=== PATIENT | male | born 1995 | race Caucasian/White ===

== ENCOUNTER 2016-07-31 20:14 | Emergency (ER) | payer BC, OTHER ==
--- NOTE | 2016-07-31 20:25 | Emergency Department Record ---
History of Present Illness - General Stated Complaint: LACERATION ON RT HAND Time Seen by Provider: 07/31/16 20:22 Source: Patient Mode of Arrival: Ambulatory Limitations: No limitations - History of Present Illness Initial Comments: 20 yo male presents to ED to ED with a CC of laceration to the base of the right thumb while loading sheet metal tonight. Patient denies weakness to the thumb, reports mild tingling. Patient denies health problems at his baseline, does not take blood thinner medications. Onset/Timin -: Minutes(s) Other Extremity Injury: Hand: Right Other Injuries: None Handedness: Right Place: Work Improves With: None Worsens With: None Context: Laceration Associated Symptoms: Denies other symptoms Treatments Prior to Arrival: Bandage - Related Data Previous Rx's Medication Instructions Recorded Cephalexin [Keflex] 500 mg PO QID #39 cap 07/31/16 Allergies Allergy/AdvReac Type Severity Reaction Status Date / Time No Known Drug Allergies Allergy Verified 07/31/16 20:26 Review of Systems Constitutional: Denies: Chills, Fever, Malaise, Night sweats Eyes: Denies: Eye discharge, Eye pain ENT: Denies: Congestion, Ear pain Respiratory: Denies: Cough, Dyspnea Cardiovascular: Denies: Chest pain, Dyspnea on exertion Endocrine: Denies: Fatigue, Heat or cold intolerance Gastrointestinal: Denies: Abdominal pain, Nausea, Vomiting Genitourinary: Denies: Incontinence, Retention Musculoskeletal: Reports: Arthralgia. Denies: Back pain, Gout, Joint swelling Skin: Denies: Bruising, Change in color Neurological: Denies: Abnormal gait, Confusion, Seizure Psychiatric: Denies: Anxiety Hematological/Lymphatic: Denies: Anemia, Blood Clots Physical Exam - General General Appearance: Alert, Oriented x3, Cooperative, No acute distress Limitations: No limitations - Head Head exam: Atraumatic, Normocephalic, Normal inspection Head exam detail: negative: Abrasion, Contusion, Phillips's sign, General tenderness, Hematoma, Laceration - Eye Eye exam: Normal appearance. negative: Conjunctival injection, Periorbital swelling, Periorbital tenderness, Scleral icterus - ENT Ear exam: negative: Auricular hematoma, Auricular trauma Nasal Exam: negative: Active bleeding, Discharge, Dried blood, Foreign body Mouth exam: negative: Drooling, Laceration, Muffled voice, Tongue elevation - Neck Neck exam: Normal inspection. negative: Meningismus, Tenderness - Respiratory Respiratory exam: Normal lung sounds bilaterally. negative: Rales, Respiratory distress, Rhonchi, Stridor - Cardiovascular Cardiovascular Exam: Regular rate, Normal rhythm, Normal heart sounds - GI/Abdominal GI/Abdominal exam: Soft. negative: Rigid, Tenderness - Rectal Rectal exam: Deferred - exam: Deferred - Extremities Extremities exam: Tenderness, Other (2.0 flap-like laceration to the base of the right thumb, FROM of the thumb on examination, full opposition to all digits is intact.). negative: Calf tenderness, Pedal edema - Back Back exam: Denies: CVA tenderness (R), CVA tenderness (L) - Neurological Neurological exam: Alert, Normal gait, Oriented X3 - Psychiatric Psychiatric exam: Normal affect, Normal mood - Skin Skin exam: Normal color. negative: Abrasion Type of lesion: negative: abrasion Course - Reevaluation(s) Reevaluation #1: 07/31/16 20:42 Procedure Note: Right hand was anesthetized with lidocaine 1%, 3 mL and prepped in sterile fashion. Would was then irrigated and visualized for any FBs, none identified. No tendons were visualized on examination. Wound was closed with 4 -0 Prolene sutures in interrupted fashion, #7. Patient tolerated the procedure well without complications. Tetanus was updated while in the ED, will initiate antibiotics as the wound does involve the hand. Patient has FROM of the thumb following the procedure with full opposition intact, sensation to the dorsum of the thumb/hand is normal as well. Patient appears stable for discharge at this time. 07/31/16 20:45 07/31/16 20:47 Disposition Disposition: Discharge Clinical Impression: Hand laceration Qualifiers: Encounter type: initial encounter Foreign body presence: without foreign body Laterality: right Qualified Code(s): S61.411A - Laceration without foreign body of right hand, initial encounter Disposition: Home, Self-Care Condition: (2) Stable Instructions: Laceration (ED) Additional Instructions: Return to ED if your symptoms worsen or if you have any concerns. Keflex as directed. Sutures out in 10-14 days. Follow-up with your family doctor in 1 week. Prescriptions: Cephalexin [Keflex] 500 mg PO QID #39 cap Time of Disposition: 20:47
[2016-07-31] MEDS ORDERED: Diph,Pert(Acell),Tet Vac 0.5 ML SYR IM ONE (20:37)
[2016-07-31] MEDS ORDERED: CEPHALEXIN 500 MG CAPSULE PO STA (20:46)
== END 2016-07-31 21:06 | disposition home or self-care (01) ==
LOC: ER 20:14
DX: S61.011A Laceration without foreign body of right thumb without damage to nail, initial encounter (principal); W45.8XXA Other foreign body or object entering through skin, initial encounter; Y92.63 Factory as the place of occurrence of the external cause; Y99.0 Civilian activity done for income or pay
CPT/HCPCS: 12001; 90715; 96372; 99283

== ENCOUNTER 2017-03-15 19:06 | Emergency (ER) | payer BC, OTHER ==
--- NOTE | 2017-03-15 20:38 | Emergency Department Record ---
History of Present Illness - General Chief Complaint: Ankle/Foot Injury Stated Complaint: LT BIG TOE NAIL COMING OFF Time Seen by Provider: 03/15/17 20:02 Source: Patient Mode of Arrival: Ambulatory Limitations: No limitations - History of Present Illness Initial Comments: pt got toe caught under door disrupting toe nail. pt worked all day on it. it is painful MD Complaint: Foot injury Onset/Timin -: Hour(s) Injury: Foot: Left Type of Injury: Blunt Place: Home Severity: Moderate Severity scale (1-10): 8 Improves With: Immobilization, Rest Worsens With: Movement, Weight bearing Context: Direct blow, Running Associated Symptoms: Swelling, Ambulatory, Able to partially bear weight Treatments Prior to Arrival: Bandage - Related Data Home Medications Medication Instructions Recorded Confirmed Last Taken No Home Med [NO HOME MEDS] 03/15/17 03/15/17 Unknown Allergies Allergy/AdvReac Type Severity Reaction Status Date / Time No Known Drug Allergies Allergy Verified 07/31/16 20:26 Travel Screening - Travel/Exposure Within Last 30 Days Have you traveled within the last 30 days?: No - Travel Symptoms Symptom Screening: None Review of Systems Reviewed: No additional complaints except as noted below Constitutional: Reports: As per HPI. Denies: Chills, Fever, Malaise, Night sweats, Weakness, Weight change Eyes: Reports: As per HPI. Denies: Eye discharge, Eye pain, Photophobia, Vision change ENT: Reports: As per HPI. Denies: Congestion, Dental pain, Ear pain, Epistaxis , Hearing loss, Throat pain Respiratory: Reports: As per HPI. Denies: Cough, Dyspnea, Hemoptysis, Stridor, Wheezes Cardiovascular: Reports: As per HPI. Denies: Arrhythmia, Chest pain, Dyspnea on exertion, Edema, Murmurs, Orthopnea, Palpitations, Paroxysmal nocturnal dyspnea, Rheumatic Fever, Syncope Endocrine: Reports: As per HPI. Denies: Fatigue, Heat or cold intolerance, Polydipsia, Polyuria Gastrointestinal: Reports: As per HPI. Denies: Abdominal pain, Constipation, Diarrhea, Hematemesis, Hematochezia, Melena, Nausea, Vomiting Genitourinary: Reports: As per HPI. Denies: Dysuria, Frequency, Hematuria, Incontinence, Retention, Testicular pain, Testicular mass, Urgency Musculoskeletal: Reports: As per HPI. Denies: Arthralgia, Back pain, Gout, Joint swelling, Myalgia, Neck pain Skin: Reports: As per HPI. Denies: Bruising, Change in color, Change in hair/ nails, Lesions, Pruritus, Rash Neurological: Reports: As per HPI. Denies: Abnormal gait, Confusion, Headache, Numbness, Paresthesias, Seizure, Tingling, Tremors, Vertigo, Weakness Psychiatric: Reports: As per HPI. Denies: Anxiety, Auditory hallucinations, Depression, Homicidal thoughts, Suicidal thoughts, Visual hallucinations Hematological/Lymphatic: Reports: As per HPI. Denies: Anemia, Blood Clots, Easy bleeding, Easy bruising, Swollen glands Past Medical History - SOCIAL HISTORY Smoking Status: Light tobacco smoker (<10/day) Alcohol Use: None Drug Use: Occasional Drug Use Detail:: Marijuana - RESPIRATORY Hx Respiratory Disorders: No - CARDIOVASCULAR Hx Cardio Disorders: No - NEURO Hx Neuro Disorders: Yes Comment:: Concussions r/t sports injuries - GI Hx GI Disorders: No - Hx Genitourinary Disorders: No - ENDOCRINE Hx Endocrine Disorders: No - MUSCULOSKELETAL Hx Musculoskeletal Disorders: No - PSYCH Hx Psych Problems: No - HEMATOLOGY/ONCOLOGY Hx Hematology/Oncology Disorders: No Family Medical History Any Significant Family History?: Yes Hx Heart Disease: Father, Grandparents Hx HTN: Father, Grandparents Physical Exam - General General Appearance: Alert, Oriented x3, Cooperative, Mild distress - Head Head exam: Normal inspection - Eye Eye exam: Normal appearance, PERRL, EOMI Pupils: Normal accommodation - ENT ENT exam: Normal exam, Mucous membranes moist, Normal external ear exam, Normal orophraynx, TM's normal bilaterally Ear exam: Normal external inspection. negative: External canal tenderness Nasal Exam: Normal inspection. negative: Discharge, Sinus tenderness Mouth exam: Normal external inspection, Tongue normal Teeth exam: Normal inspection. negative: Dental caries Throat exam: Normal inspection. negative: Tonsillar erythema, Tonsillar exudate - Neck Neck exam: Normal inspection, Full ROM. negative: Tenderness - Respiratory Respiratory exam: Normal lung sounds bilaterally. negative: Respiratory distress - Cardiovascular Cardiovascular Exam: Regular rate, Normal rhythm, Normal heart sounds - GI/Abdominal GI/Abdominal exam: Soft, Normal bowel sounds. negative: Tenderness - Rectal Rectal exam: Deferred - exam: Deferred - Extremities Extremities exam: Normal inspection, Full ROM, Normal capillary refill, Tenderness Image of Feet: 1 - nail partially uprooted - Back Back exam: Reports: Normal inspection, Full ROM. Denies: Muscle spasm, Rash noted, Tenderness - Neurological Neurological exam: Alert, CN II-XII intact, Normal gait, Oriented X3 - Psychiatric Psychiatric exam: Normal affect, Normal mood - Skin Skin exam: Dry, Intact, Normal color, Warm Course Vital Signs 03/15/17 19:21 Temperature 98.2 F Pulse Rate 64 Respiratory 20 Rate Blood Pressure 143/78 Pulse Ox 97 - Reevaluation(s) Reevaluation #1: 03/15/17 20:38 pt warned that nail will fall off Disposition Disposition: Discharge Clinical Impression: Nail avulsion of toe Qualifiers: Encounter type: initial encounter Qualified Code(s): S91.209A - Unspecified open wound of unspecified toe(s) with damage to nail, initial encounter Contusion of toe of left foot Qualifiers: Encounter type: initial encounter Toe: great toe Damage to nail status: with damage Qualified Code(s): S90.212A - Contusion of left great toe with damage to nail, initial encounter Disposition: Home, Self-Care Condition: (1) Good Instructions: Nail Avulsion (ED) Additional Instructions: follow up with family doctor. return sooner if worse. elevate foot. motrin for pain. keep toe bandaged Quality - Quality Measures Quality Measures: N/A - Blood Pressure Screening Does Patient Have Any of the Following: No Blood Pressure Classification: Hypertensive Reading Systolic Measurement: 143 Diastolic Measurement: 78 Screening for High Blood Pressure: < Pre-Hypertensive BP, F/U Documented > [ [id number]] Pre-Hypertensive Follow-up Interventions: Follow-up with rescreen every year.
[2017-03-15] MEDS ORDERED: IBUPROFEN 600 MG TABLET PO ONE (20:40)
--- NOTE | 2017-03-16 07:30 | RADIOLOGY REPORT ---
EXAM: LEFT FOOT HISTORY: INJURY. TECHNIQUE: Three views of the left foot were performed. FINDINGS: No evidence of fracture or dislocation. No lytic or blastic lesion. No calcaneal spur. IMPRESSION: NEGATIVE LEFT FOOT EXAMINATION. JOB NUMBER: [id number] MTDD
== END 2017-03-15 21:07 | disposition home or self-care (01) ==
LOC: ER 19:06
DX: S91.202A Unspecified open wound of left great toe with damage to nail, initial encounter (principal); S90.212A Contusion of left great toe with damage to nail, initial encounter; W23.0XXA Caught, crushed, jammed, or pinched between moving objects, initial encounter; Y92.009 Unspecified place in unspecified non-institutional (private) residence as the place of occurrence of the external cause
CPT/HCPCS: 99283; 99284